=== PATIENT | male | born 1955 | race Caucasian/White ===

== ENCOUNTER → 2016-05-28 | Outpatient (CLI) | payer OTHER | LOC: EXRD 11:00 | DX: R22.2 Localized swelling, mass and lump, trunk (principal); J98.4 Other disorders of lung; J98.59 Other diseases of mediastinum, not elsewhere classified | CPT/HCPCS: 71020 ==

== ENCOUNTER → 2016-06-29 | Outpatient (CLI) | payer OTHER | LOC: US 14:19 | DX: R22.2 Localized swelling, mass and lump, trunk (principal) | CPT/HCPCS: 76881 ==